=== PATIENT | female | born 1970 | race Caucasian/White ===

== ENCOUNTER 2017-06-18 12:18 | Emergency (ER) | payer MEDICARE, OTHER ==
[2017-06-18 12:30] VITALS: RESP 20
--- NOTE | 2017-06-18 12:56 | ED ---
General Adult HPI - General Chief complaint: Upper Respiratory Infection Stated complaint: Cough Source: patient, RN notes reviewed Mode of arrival: ambulatory Limitations: no limitations - History of Present Illness Initial comments: This is a 47-year-old female who presents to emergency department today with chief complaint of cough. Patient is here from [place], where she has been a resident there since June 01 for cocaine overdose. Prior to admission there, she was given a Z-Tyler for cough and it cleared up. Patient reports that many residents at [place] have been sick and she developed a cough again at the beginning of the week. She reports that she has been taking azithromycin over this past week again. Her last dose was today. She complains of a dry cough that is nonproductive. She complains of sweating and occasional shortness of breath. She has been receiving breathing treatments at [place], the last being this morning. Patient also complains of headache, sore throat, and issues with urinary retention when she coughs. She reports that her urine appears orange. Denies fever, chills, chest pain,abdominal pain , nausea or vomiting, constipation or diarrhea, dysuria, numbness or tingling, or vision changes. - Related Data Home Medications Medication Instructions Recorded Confirmed Divalproex [Depakote] 500 mg PO TID 06/18/17 06/18/17 buPROPion HCL [Wellbutrin SR] 150 mg PO BID 06/18/17 06/18/17 busPIRone HCl [Buspar] 10 mg PO BID 06/18/17 06/18/17 Allergies Allergy/AdvReac Type Severity Reaction Status Date / Time No Known Allergies Allergy Verified 06/18/17 12:29 Review of Systems ROS Statement: Those systems with pertinent positive or pertinent negative responses have been documented in the HPI. ROS Other: All systems not noted in ROS Statement are negative. Past Medical History Past Medical History: Pneumonia History of Any Multi-Drug Resistant Organisms: None Reported Additional Past Surgical History / Comment(s): neck 6-5 surgery,lt carpal tunnel Past Psychological History: Depression Smoking Status: Former smoker Past Alcohol Use History: None Reported Past Drug Use History: Cocaine General Exam - General Exam Comments Initial Comments: General: Awake and alert, well-developed; in no acute distress. Voice is hoarse. HEENT: Head atraumatic, normocephalic. Pupils are equal, round and reactive to light. Extraocular movements intact. Oropharynx moist without erythema or exudate. Neck: Supple. Normal ROM. Trachea midline. No adenopathy. Cardiovascular: Regular rate and rhythm. No murmurs, rubs or gallops. Chest symmetrical. Respiratory: Normal respiratory effort with no use of accessory muscles. There are expiratory wheezes in all lung coulter. Diminished breath sounds at the bases of both lungs. Abdomen: Soft, non-tender, non-distended. No rigidity, rebound or guarding. Normal bowel sounds in all 4 quadrants. Skin: [place], warm and dry without rashes or lesions. Neurological: Alert and oriented x3. CN II-XII grossly intact. Speech is fluent and answers are appropriate. No focal neuro deficits. Psychiatric: Normal mood and affect. No overt signs of depression or anxiety noted. Limitations: no limitations Course Vital Signs 06/18/17 12:26 Temperature 98.9 F Pulse Rate 106 H Respiratory 20 Rate Blood Pressure 145/75 O2 Sat by Pulse 99 Oximetry Medical Decision Making - Medical Decision Making This case was discussed with attending physician, Dr. Tao. Chest x-ray revealed minimal peribronchial cuffing consistent with bronchitis. She'll be discharged home with recommendation to follow up with his primary care provider within 1-2 days. Disposition Clinical Impression: Bronchitis Disposition: HOME SELF-CARE Condition: Good Instructions: Upper Respiratory Infection (ED) Additional Instructions: Please follow up with primary care provider within 1-2 days. Return to emergency department if symptoms should worsen or any concerns arise. Referrals: Nonstaff,Physician [Primary Care Provider] - 1-2 days Time of Disposition: 13:36
[2017-06-18 13:04] LABS: Appearance,Urine Cloudy (Clear); Bacteria,Urine Occasional /hpf; Bilirubin,Urine Negative (Negative); Glucose,Urine (UA) Negative (Negative); Ketones,Urine 1+ (Negative); Leukocyte Esterase,Urine Negative (Negative); Mucus,Urine Moderate /hpf; Nitrite,Urine Negative (Negative); Particle Count 10358; Protein,Urine 1+ (Negative); RBC,Urine 3 /hpf (0-5); Specific Gravity,Urine 1.031 (1.001-1.035); Squamous Epithelial Cell,Urine 20 /hpf (0-4); UA Billing (MACRO vs. MICRO) MICRO; WBC,Urine 3 /hpf (0-5)
--- NOTE | 2017-06-18 13:28 | XR ---
EXAMINATION TYPE: XR chest 2V DATE OF EXAM: 06/18/2017 HISTORY: cough. REFERENCE: NONE. FINDINGS: There has been a previous ACDF of the lower cervical spine. The lungs are clear. Pleural spaces are clear. Heart size is normal. There may be some minimal peribr onchial cuffing. IMPRESSION: FINDINGS CONSISTENT WITH BUT NOT DIAGNOSTIC OF BRONCHITIS.
[2017-06-18 13:48] VITALS: BP 142/69; PULSE 98; TEMP 98.8
== END 2017-06-18 13:48 | disposition home or self-care (01) ==
LOC: EC 12:18
DX: J40 Bronchitis, not specified as acute or chronic (principal); R51 Headache; F32.9 Major depressive disorder, single episode, unspecified; Z87.01 Personal history of pneumonia (recurrent); Z87.891 Personal history of nicotine dependence; Z79.899 Other long term (current) drug therapy
CPT/HCPCS: 71020; 81001; 99283

== ENCOUNTER 2017-06-21 13:47 | Inpatient (IN) | payer MEDICARE, OTHER ==
[2017-06-21] MEDS ORDERED: IPRATROPIUM 0.5 MG/2.5 ML NEBU INHALATION STA (14:47)
[2017-06-21] MEDS ORDERED: ALBUTEROL NEBULIZED 2.5 MG/3 ML INHALATION STA (14:47)
[2017-06-21] MEDS ORDERED: SODIUM CHLORIDE 0.9% 1,000 ML IV STA (14:47)
[2017-06-21] MEDS ORDERED: methylPREDNISolone SOD SUCCI 125 MG/2 ML VIAL IV STA (14:47)
--- NOTE | 2017-06-21 14:50 | ED ---
General Adult HPI - General Chief complaint: Shortness of Breath Stated complaint: Diff Breathing Time Seen by Provider: 06/21/17 14:07 Source: patient, RN notes reviewed, old records reviewed Mode of arrival: ambulatory Limitations: no limitations - History of Present Illness Initial comments: 47-year-old female with history of pneumonia presents with a 3 week history of cough and dyspnea. Patient's cough has been productive. She has had worsening difficulty breathing over the past several days. She was started on azithromycin approximately one week ago, this failed to improve her symptoms. Patient denies a history of asthma or COPD, however she is a smoker. She has been treated with albuterol the past for reactive airway disease. Denies any abdominal pain. Denies nausea vomiting or diarrhea. Denies fever or chills. - Related Data Home Medications Medication Instructions Recorded Confirmed Divalproex [Depakote] 500 mg PO TID 06/18/17 06/21/17 buPROPion HCL [Wellbutrin SR] 150 mg PO BID 06/18/17 06/21/17 busPIRone HCl [Buspar] 10 mg PO BID@0600,1730 06/18/17 06/21/17 Acetaminophen [Tylenol 8 Hour] 650 mg PO Q4H PRN MDD 6 TABS 06/21/17 06/21/17 Albuterol Nebulized [Ventolin 2.5 mg INHALATION RT-Q4H PRN 06/21/17 06/21/17 Nebulized] Azithromycin [Zithromax Z-pack] See Taper PO DIRECTED 06/21/17 06/21/17 Chlorpheniramine Maleate 4 mg PO Q4H PRN 06/21/17 06/21/17 [Chlor-Trimeton] FLUoxetine HCL 40 mg PO DAILY 06/21/17 06/21/17 Ibuprofen [Ibuprofen] 800 mg PO TID PRN 06/21/17 06/21/17 Lisinopril [Zestril] 10 mg PO DAILY 06/21/17 06/21/17 Loperamide [Imodium] 4 mg PO QID PRN MDD 4 DOSES 06/21/17 06/21/17 Mirtazapine [Remeron] 15 mg PO HS PRN 06/21/17 06/21/17 Omeprazole Magnesium [Prilosec OTC] 20 mg PO DAILY 06/21/17 06/21/17 Terbinafine [LamISIL] 250 mg PO DAILY 06/21/17 06/21/17 busPIRone HCl [Buspar] 5 mg PO TID@0600,1500,2200 06/21/17 06/21/17 predniSONE [Deltasone] 20 mg PO ONCE 06/21/17 06/21/17 Allergies Allergy/AdvReac Type Severity Reaction Status Date / Time paper tape Allergy Rash/Hives Uncoded 06/21/17 14:13 Review of Systems ROS Statement: Those systems with pertinent positive or pertinent negative responses have been documented in the HPI. ROS Other: All systems not noted in ROS Statement are negative. Past Medical History Past Medical History: Pneumonia History of Any Multi-Drug Resistant Organisms: None Reported Additional Past Surgical History / Comment(s): neck 6-5 surgery,lt carpal tunnel Past Psychological History: Depression Smoking Status: Current every day smoker Past Alcohol Use History: None Reported Past Drug Use History: Cocaine General Exam Limitations: no limitations General appearance: alert, in distress Head exam: Present: atraumatic, normocephalic Eye exam: Present: normal appearance, PERRL ENT exam: Present: normal exam Neck exam: Present: normal inspection, full ROM. Absent: tenderness, meningismus Respiratory exam: Present: respiratory distress, wheezes, prolonged expiratory Cardiovascular Exam: Present: normal rhythm, tachycardia GI/Abdominal exam: Present: soft. Absent: distended, tenderness Extremities exam: Present: normal inspection, normal capillary refill. Absent: pedal edema Back exam: Present: normal inspection, full ROM Neurological exam: Present: alert, oriented X3, CN II-XII intact. Absent: motor sensory deficit Psychiatric exam: Present: normal affect, normal mood. Absent: depressed Skin exam: Present: warm, intact, diaphoretic. Absent: cyanosis Course Vital Signs 06/21/17 06/21/17 06/21/17 14:11 15:02 15:17 Temperature 98.4 F Pulse Rate 116 H 113 H 110 H Respiratory 22 Rate Blood Pressure 148/91 O2 Sat by Pulse 95 Oximetry 06/21/17 15:43 Temperature 100.4 F H Pulse Rate 115 H Respiratory 22 Rate Blood Pressure 134/68 O2 Sat by Pulse 98 Oximetry EKG Findings - EKG Comments: EKG Findings:: EKG shows sinus tachycardia, ventricular rate 108, NV interval 168, QRS duration 86, QTC 442, no ST segment elevation or depression Medical Decision Making - Medical Decision Making 47-year-old female presenting with cough and dyspnea. Patient does have significant an extremely wheeze, breathing, diffuse rhonchi. Chest x-ray shows no acute process. Laboratory studies are unremarkable, including negative d- dimer. Patient only improves minimally with steroids, albuterol, Atrovent. She will be placed in observation for continued breathing treatments. Diagnosis bronchitis, likely COPD. - Lab Data Result diagrams: 06/21/17 14:35 06/21/17 14:35 Lab Results 06/21/17 06/21/17 06/21/17 Range/Units 14:35 14:35 14:35 WBC 10.0 (3.8-10.6) k/uL RBC 4.19 (3.80-5.40) m/uL Hgb 12.1 (11.4-16.0) gm/dL Hct 37.1 (34.0-46.0) % MCV 88.4 (80.0-100.0) fL MCH 29.0 (25.0-35.0) pg MCHC 32.7 (31.0-37.0) g/dL RDW 14.9 (11.5-15.5) % Plt Count 338 (150-450) k/uL Neutrophils % 76 % Lymphocytes % 15 % Monocytes % 2 % Eosinophils % 6 % Basophils % 1 % Neutrophils # 7.6 (1.3-7.7) k/uL Lymphocytes # 1.5 (1.0-4.8) k/uL Monocytes # 0.2 (0-1.0) k/uL Eosinophils # 0.6 (0-0.7) k/uL Basophils # 0.1 (0-0.2) k/uL PT (9.0-12.0) sec INR (<1.2) APTT (22.0-30.0) sec D-Dimer (<0.60) mg/L FEU Sodium 140 (137-145) mmol/L Potassium 4.7 (3.5-5.1) mmol/L Chloride 105 (98-107) mmol/L Carbon Dioxide 20 L (22-30) mmol/L Anion Gap 15 mmol/L BUN 10 (7-17) mg/dL Creatinine 0.70 (0.52-1.04) mg/dL Est GFR (MDRD) Af Amer >60 (>60 ml/min/1.73 sqM) Est GFR (MDRD) Non-Af >60 (>60 ml/min/1.73 sqM) Glucose 151 H (74-99) mg/dL Calcium 9.2 (8.4-10.2) mg/dL Magnesium 1.6 (1.6-2.3) mg/dL Total Bilirubin 0.4 (0.2-1.3) mg/dL AST 39 H (14-36) U/L ALT 49 (9-52) U/L Alkaline Phosphatase 94 (38-126) U/L Total Creatine Kinase 722 H (30-135) U/L CK-MB (CK-2) 4.5 H* (0.0-2.4) ng/mL CK-MB (CK-2) Rel Index 0.6 Troponin I <0.012 (0.000-0.034) ng/mL NT-Pro-B Natriuret Pep pg/mL Total Protein 7.2 (6.3-8.2) g/dL Albumin 3.9 (3.5-5.0) g/dL Urine Color Urine Appearance (Clear) Urine pH (5.0-8.0) Ur Specific [place] (1.001-1.035) Urine Protein (Negative) Urine Glucose (UA) (Negative) Urine Ketones (Negative) Urine Blood (Negative) Urine Nitrite (Negative) Urine Bilirubin (Negative) Urine Urobilinogen (<2.0) mg/dL Ur Leukocyte Esterase (Negative) Urine RBC (0-5) /hpf Urine WBC (0-5) /hpf Ur Squamous Epith Cells (0-4) /hpf Urine Mucus (None) /hpf Urine HCG, Qual (Not Detectd) 06/21/17 06/21/17 06/21/17 Range/Units 14:35 14:35 15:45 WBC (3.8-10.6) k/uL RBC (3.80-5.40) m/uL Hgb (11.4-16.0) gm/dL Hct (34.0-46.0) % MCV (80.0-100.0) fL MCH (25.0-35.0) pg MCHC (31.0-37.0) g/dL RDW (11.5-15.5) % Plt Count (150-450) k/uL Neutrophils % % Lymphocytes % % Monocytes % % Eosinophils % % Basophils % % Neutrophils # (1.3-7.7) k/uL Lymphocytes # (1.0-4.8) k/uL Monocytes # (0-1.0) k/uL Eosinophils # (0-0.7) k/uL Basophils # (0-0.2) k/uL PT 10.3 (9.0-12.0) sec INR 1.0 (<1.2) APTT 24.7 (22.0-30.0) sec D-Dimer 0.55 (<0.60) mg/L FEU Sodium (137-145) mmol/L Potassium (3.5-5.1) mmol/L Chloride (98-107) mmol/L Carbon Dioxide (22-30) mmol/L Anion Gap mmol/L BUN (7-17) mg/dL Creatinine (0.52-1.04) mg/dL Est GFR (MDRD) Af Amer (>60 ml/min/1.73 sqM) Est GFR (MDRD) Non-Af (>60 ml/min/1.73 sqM) Glucose (74-99) mg/dL Calcium (8.4-10.2) mg/dL Magnesium (1.6-2.3) mg/dL Total Bilirubin (0.2-1.3) mg/dL AST (14-36) U/L ALT (9-52) U/L Alkaline Phosphatase (38-126) U/L Total Creatine Kinase (30-135) U/L CK-MB (CK-2) (0.0-2.4) ng/mL CK-MB (CK-2) Rel Index Troponin I (0.000-0.034) ng/mL NT-Pro-B Natriuret Pep 64 pg/mL Total Protein (6.3-8.2) g/dL Albumin (3.5-5.0) g/dL Urine Color Urine Appearance (Clear) Urine pH (5.0-8.0) Ur Specific [place] (1.001-1.035) Urine Protein (Negative) Urine Glucose (UA) (Negative) Urine Ketones (Negative) Urine Blood (Negative) Urine Nitrite (Negative) Urine Bilirubin (Negative) Urine Urobilinogen (<2.0) mg/dL Ur Leukocyte Esterase (Negative) Urine RBC (0-5) /hpf Urine WBC (0-5) /hpf Ur Squamous Epith Cells (0-4) /hpf Urine Mucus (None) /hpf Urine HCG, Qual Not Detected (Not Detectd) 06/21/17 Range/Units 15:45 WBC (3.8-10.6) k/uL RBC (3.80-5.40) m/uL Hgb (11.4-16.0) gm/dL Hct (34.0-46.0) % MCV (80.0-100.0) fL MCH (25.0-35.0) pg MCHC (31.0-37.0) g/dL RDW (11.5-15.5) % Plt Count (150-450) k/uL Neutrophils % % Lymphocytes % % Monocytes % % Eosinophils % % Basophils % % Neutrophils # (1.3-7.7) k/uL Lymphocytes # (1.0-4.8) k/uL Monocytes # (0-1.0) k/uL Eosinophils # (0-0.7) k/uL Basophils # (0-0.2) k/uL PT (9.0-12.0) sec INR (<1.2) APTT (22.0-30.0) sec D-Dimer (<0.60) mg/L FEU Sodium (137-145) mmol/L Potassium (3.5-5.1) mmol/L Chloride (98-107) mmol/L Carbon Dioxide (22-30) mmol/L Anion Gap mmol/L BUN (7-17) mg/dL Creatinine (0.52-1.04) mg/dL Est GFR (MDRD) Af Amer (>60 ml/min/1.73 sqM) Est GFR (MDRD) Non-Af (>60 ml/min/1.73 sqM) Glucose (74-99) mg/dL Calcium (8.4-10.2) mg/dL Magnesium (1.6-2.3) mg/dL Total Bilirubin (0.2-1.3) mg/dL AST (14-36) U/L ALT (9-52) U/L Alkaline Phosphatase (38-126) U/L Total Creatine Kinase (30-135) U/L CK-MB (CK-2) (0.0-2.4) ng/mL CK-MB (CK-2) Rel Index Troponin I (0.000-0.034) ng/mL NT-Pro-B Natriuret Pep pg/mL Total Protein (6.3-8.2) g/dL Albumin (3.5-5.0) g/dL Urine Color Yellow Urine Appearance Clear (Clear) Urine pH 7.0 (5.0-8.0) Ur Specific [place] 1.018 (1.001-1.035) Urine Protein Negative (Negative) Urine Glucose (UA) Negative (Negative) Urine Ketones 1+ H (Negative) Urine Blood Trace H (Negative) Urine Nitrite Negative (Negative) Urine Bilirubin Negative (Negative) Urine Urobilinogen <2.0 (<2.0) mg/dL Ur Leukocyte Esterase Negative (Negative) Urine RBC 3 (0-5) /hpf Urine WBC <1 (0-5) /hpf Ur Squamous Epith Cells 1 (0-4) /hpf Urine Mucus Rare H (None) /hpf Urine HCG, Qual (Not Detectd) Disposition Clinical Impression: Chronic bronchitis Disposition: ADMITTED IP TO THIS [facility] Condition: Stable Referrals: Nonstaff,Physician [Primary Care Provider] - 1-2 days Decision to Admit Reason: Admit from EC Decision Date: 06/21/17 Decision Time: 16:40
[2017-06-21 15:05] LABS: Basophils # (A) 0.1 k/uL (0-0.2); Basophils % (A) 1 %; CH 28.3; CHCM 32.2; Eosinophils # (A) 0.6 k/uL (0-0.7); Eosinophils % (A) 6 %; HCT 37.1 % (34.0-46.0); HDW 2.91; HGB 12.1 gm/dL (11.4-16.0); Luc # (Auto) 0.11; Luc % (Auto) 1; Lymphocytes # (A) 1.5 k/uL (1.0-4.8); Lymphocytes % (A) 15 %; MCHC 32.7 g/dL (31.0-37.0); MCV 88.4 fL (80.0-100.0); Mean Platelet Volume 6.6; Monocytes # (A) 0.2 k/uL (0-1.0); Monocytes % (A) 2 %; Neutrophils # (A) 7.6 k/uL (1.3-7.7); Neutrophils % (A) 76 %; RBC 4.19 m/uL (3.80-5.40); RDW 14.9 % (11.5-15.5); WBC (Perox) 10.46
[2017-06-21 15:09] LABS: ALT 49 U/L (9-52); AST 39 U/L (14-36); Alkaline Phosphatase 94 U/L (38-126); Anion Gap 15 mmol/L; Blood Urea Nitrogen 10 mg/dL (7-17); Calcium 9.2 mg/dL (8.4-10.2); Carbon Dioxide 20 mmol/L (22-30); Chloride 105 mmol/L (98-107); Glucose 151 mg/dL (74-99); Magnesium 1.6 mg/dL (1.6-2.3); Non-African American GFR(MDRD) >60 (>60 ml/min/1.73 sqM); Potassium 4.7 mmol/L (3.5-5.1); Sodium 140 mmol/L (137-145); Total Bilirubin 0.4 mg/dL (0.2-1.3); Total Protein 7.2 g/dL (6.3-8.2)
[2017-06-21 15:12] LABS: Partial Thromboplastin Time 24.7 sec (22.0-30.0); Prothrombin Time 10.3 sec (9.0-12.0)
[2017-06-21 15:23] LABS: Creatine Kinase 722 U/L (30-135)
[2017-06-21 15:36] LABS: Troponin I <0.012 ng/mL (0.000-0.034)
[2017-06-21 15:44] LABS: Creatine Kinase MB 4.5 ng/mL (0.0-2.4)
--- NOTE | 2017-06-21 15:55 | XR ---
EXAMINATION TYPE: XR chest 2V DATE OF EXAM: 06/21/2017 COMPARISON: Chest x-ray June 18, 2017 HISTORY: Difficulty breathing and wheezing. TECHNIQUE: Frontal and lateral views of the chest are obtained. FINDINGS: There is no focal air space opacity, pleural effusion, or pneumothorax seen. The cardiac silhouette size is within normal limits. Anterior fusion plate lower cervical spine is again seen. Ch olecystectomy clips are redemonstrated. IMPRESSION: No suspicious new acute pulmonary process.
[2017-06-21 15:57] LABS: Appearance,Urine Clear (Clear); Bilirubin,Urine Negative (Negative); Glucose,Urine (UA) Negative (Negative); Ketones,Urine 1+ (Negative); Leukocyte Esterase,Urine Negative (Negative); Mucus,Urine Rare /hpf; Nitrite,Urine Negative (Negative); Particle Count 815; Protein,Urine Negative (Negative); RBC,Urine 3 /hpf (0-5); Specific Gravity,Urine 1.018 (1.001-1.035); Squamous Epithelial Cell,Urine 1 /hpf (0-4); UA Billing (MACRO vs. MICRO) MICRO; Urobilinogen,Urine <2.0 mg/dL (<2.0); WBC,Urine <1 /hpf (0-5)
[2017-06-21] MEDS ORDERED: NALOXONE 0.4 MG/ML 1 ML VIAL IV PRN (16:58)
[2017-06-21] MEDS ORDERED: AZITHROMYCIN 500 MG TAB PO STA (17:03)
[2017-06-21] MEDS ORDERED: NON-FORMULARY DRUG (Acetaminophen [Tylenol 8 Hour] 650 MG) PO PRN (17:05)
[2017-06-21] MEDS ORDERED: MIRTAZAPINE 15 MG TAB PO PRN (17:05)
--- NOTE | 2017-06-21 17:24 | P.HPIM ---
History of Present Illness H&P Date: 06/21/17 47-year-old female with history of pneumonia presents with a 3 week history of cough and dyspnea. Patient's cough has been productive. She has had worsening difficulty breathing over the past four days with wheezing that is worse with exertion, she mentions a history of tobacco use further over 25 years. She was started on azithromycin approximately one week ago, this failed to improve her symptoms. Patient denies a history of asthma or COPD, however she is a smoker. She has been treated with albuterol the past for reactive airway disease. Denies any abdominal pain. Denies nausea vomiting or diarrhea. Denies fever or chills. Review of Systems All other 14 point review of systems are negative except per HPI Past Medical History Past Medical History: Pneumonia History of Any Multi-Drug Resistant Organisms: None Reported Additional Past Surgical History / Comment(s): neck 6-5 surgery,lt carpal tunnel Past Psychological History: Depression Smoking Status: Current every day smoker Past Alcohol Use History: None Reported Past Drug Use History: Cocaine Medications and Allergies Home Medications Medication Instructions Recorded Confirmed Type Divalproex [Depakote] 500 mg PO TID 06/18/17 06/21/17 History buPROPion HCL [Wellbutrin SR] 150 mg PO BID 06/18/17 06/21/17 History busPIRone HCl [Buspar] 10 mg PO BID@0600,1730 06/18/17 06/21/17 History Acetaminophen [Tylenol 8 Hour] 650 mg PO Q4H PRN MDD 6 TABS 06/21/17 06/21/17 History Albuterol Nebulized [Ventolin 2.5 mg INHALATION RT-Q4H PRN 06/21/17 06/21/17 History Nebulized] Azithromycin [Zithromax Z-pack] See Taper PO DIRECTED 06/21/17 06/21/17 History Chlorpheniramine Maleate 4 mg PO Q4H PRN 06/21/17 06/21/17 History [Chlor-Trimeton] FLUoxetine HCL 40 mg PO DAILY 06/21/17 06/21/17 History Ibuprofen [Ibuprofen] 800 mg PO TID PRN 06/21/17 06/21/17 History Lisinopril [Zestril] 10 mg PO DAILY 06/21/17 06/21/17 History Loperamide [Imodium] 4 mg PO QID PRN MDD 4 DOSES 06/21/17 06/21/17 History Mirtazapine [Remeron] 15 mg PO HS PRN 06/21/17 06/21/17 History Omeprazole Magnesium [Prilosec OTC] 20 mg PO DAILY 06/21/17 06/21/17 History Terbinafine [LamISIL] 250 mg PO DAILY 06/21/17 06/21/17 History busPIRone HCl [Buspar] 5 mg PO TID@0600,1500,2200 06/21/17 06/21/17 History predniSONE [Deltasone] 20 mg PO ONCE 06/21/17 06/21/17 History Allergies Allergy/AdvReac Type Severity Reaction Status Date / Time paper tape Allergy Rash/Hives Uncoded 06/21/17 14:13 Physical Exam Vitals: Vital Signs Temp Pulse Resp BP Pulse Ox 06/21/17 15:43 100.4 F H 115 H 22 134/68 98 06/21/17:17 110 H 06/21/17 15:02 113 H 06/21/17 14:11 98.4 F 116 H 22 148/91 95 Intake and Output 06/21/17 06/21/17 06/21/17 06:59 14:59 22:59 Other: Weight 114.305 kg Patient Weight 06/22/17 06:59 Weight 114.305 kg Constitutional: Moderate respiratory distress, accessory muscle use Eyes: Anicteric sclerae, moist conjunctiva, no lid-lag, PERRLA ENMT: NC/AT,Oropharynx clear, no erythema, exudates Neck:Supple, FROM, no masses, or JVD, No carotid bruits; No thyromegaly Lungs: Poor aeration tight with expiratory wheezes, Clear to percussion, increased work of breathing with accessory muscle use Cardiovascular: Tachycardic regular rhythm No murmurs, gallops, or rubs no peripheral edema Abdominal: Soft Nontender, nom distended, no guarding, no rebound or rigidity, Normoactive bowel sounds No hepatomegaly, No splenomegaly, No palpable mass No abdominal wall hernia noted Skin: Normal temperature, tone, texture, turgor, No induration No subcutaneous nodules, No rash, lesions, No ulcers Extremities:No digital cyanosis No clubbing, Pedal pulses intact and symmetrical Radial pulses intact and symmetrical Normal gait and station, No calf tenderness Psychiatric: Alert and oriented to person, place and time, Appropriate affect Intact judgement Neuro: Muscles Strength 5/5 in all 4 extremities, Sensation to light touch grossly present throughout, Cranial nerves II-XII grossly intact. No focal sensory deficits Results CBC & Chem 7: 06/21/17 14:35 06/21/17 14:35 Labs: Abnormal Lab Results - Last 24 Hours (Table) 06/21/17 06/21/17 06/21/17 Range/Units 14:35 14:35 15:45 Carbon Dioxide 20 L (22-30) mmol/L Glucose 151 H (74-99) mg/dL AST 39 H (14-36) U/L Total Creatine Kinase 722 H (30-135) U/L CK-MB (CK-2) 4.5 H* (0.0-2.4) ng/mL Urine Ketones 1+ H (Negative) Urine Blood Trace H (Negative) Urine Mucus Rare H (None) /hpf Assessment and Plan (1) COPD exacerbation Status: Acute (2) Acute bronchitis Status: Acute (3) Elevated creatine kinase Status: Acute (4) Sepsis Status: Acute (5) Metabolic acidosis Status: Acute Plan: The patient is a 47-year-old female is admitted to the medical floor anticipated greater than TWO midnight stay with acute COPD exacerbation triggered by sepsis etiology unknown possibly viral bronchitis after presenting tachycardic and febrile, she started on empiric IV antibiotics with Rocephin and azithromycin, chest x-ray is clear but she is covered for community- acquired pneumonia. She is continued on supplemental oxygen with scheduled and when necessary DuoNeb breathing treatments with systemic steroids IV Solu- Medrol and supportive therapy for cough fever and nausea. She is continued on IV fluids will recheck check her labs as a patient does have a metabolic acidosis and elevated total CK. She is continued on GI and DVT prophylaxis with Protonix and SCDs and Lovenox respectively. Influenza urine Legionella and strep and blood cultures have been ordered. We'll continue to follow her clinical course
[2017-06-21] MEDS ORDERED: ONDANSETRON 4 MG/2 ML VIAL IVP PRN (17:27)
[2017-06-21] MEDS ORDERED: IPRATROPIUM-ALBUTEROL 3 ML NEB INHALATION PRN (17:39)
[2017-06-21 18:10] LABS: ABG PCO2 36 mmHg (35-45); ABG PH 7.44 (7.35-7.45); ABG PO2 99 mmHg (83-108)
[2017-06-21] MEDS: INSULIN LISPRO (humaLOG) 300 UNIT/3 ML VIAL SQ SCH ×2 (18:10→21:53)
[2017-06-21 18:11] LABS: ABG Base Excess -0.1 mmol/L; ABG HCO3 24 mmol/L (21-25); ABG TCO2 25 mmol/L (19-24)
[2017-06-21] MEDS: SODIUM CHLORIDE 0.45% 1,000 ML IV SCH (18:19)
[2017-06-21] MEDS: ENOXAPARIN 40 MG/0.4 ML SYRINGE SQ SCH (19:15)
[2017-06-21] MEDS: busPIRone HCl 10 MG TAB PO SCH (19:22)
[2017-06-21] MEDS: ACETAMINOPHEN TAB 325 MG TAB PO PRN (19:23)
[2017-06-21] MEDS: IPRATROPIUM-ALBUTEROL 3 ML NEB INHALATION SCH (19:36)
[2017-06-21] MEDS: PROMETHAZ-COD 6.25-10 MG/5 ML 5 ML CUP PO PRN (20:23)
[2017-06-21 20:42] LABS: Glucose,Whole Blood 228 mg/dL (75-99)
[2017-06-21 21:45] LABS: Creatine Kinase MB 4.4 ng/mL (0.0-2.4)
[2017-06-21] MEDS: busPIRone HCl 5 MG TAB PO SCH (21:53)
[2017-06-21] MEDS: buPROPion SR 150 MG TABLET.ER PO SCH (21:53)
[2017-06-21] MEDS: DIVALPROEX 500 MG TABLET.DR PO SCH (21:54)
[2017-06-21] MEDS: methylPREDNISolone SOD SUCCI 125 MG/2 ML VIAL IV SCH (23:18)
[2017-06-22] MEDS: IPRATROPIUM-ALBUTEROL 3 ML NEB INHALATION SCH ×5 (00:30→20:31)
[2017-06-22 02:40] LABS: Basophils % (A) 0 %; CH 29.5; CHCM 33.1; Eosinophils # (A) 0.2 k/uL (0-0.7); Eosinophils % (A) 2 %; HCT 35.2 % (34.0-46.0); HDW 2.88; HGB 11.3 gm/dL (11.4-16.0); Luc # (Auto) 0.04; Luc % (Auto) 0; Lymphocytes # (A) 1.1 k/uL (1.0-4.8); Lymphocytes % (A) 8 %; MCH 28.8 pg (25.0-35.0); MCHC 32.1 g/dL (31.0-37.0); MCV 89.6 fL (80.0-100.0); Mean Platelet Volume 7.2; Monocytes # (A) 0.2 k/uL (0-1.0); Monocytes % (A) 1 %; Neutrophils # (A) 12.8 k/uL (1.3-7.7); Neutrophils % (A) 89 %; RBC 3.92 m/uL (3.80-5.40); WBC 14.4 k/uL (3.8-10.6); WBC (Perox) 15.82
[2017-06-22 03:00] LABS: ALT 51 U/L (9-52); AST 32 U/L (14-36); Alkaline Phosphatase 85 U/L (38-126); Anion Gap 12 mmol/L; Blood Urea Nitrogen 15 mg/dL (7-17); Calcium 9.3 mg/dL (8.4-10.2); Carbon Dioxide 23 mmol/L (22-30); Chloride 103 mmol/L (98-107); Glucose 191 mg/dL (74-99); Non-African American GFR(MDRD) >60 (>60 ml/min/1.73 sqM); Potassium 4.7 mmol/L (3.5-5.1); Sodium 138 mmol/L (137-145); Total Bilirubin 0.2 mg/dL (0.2-1.3); Total Protein 6.9 g/dL (6.3-8.2)
[2017-06-22 03:16] LABS: Creatine Kinase MB 4.7 ng/mL (0.0-2.4)
[2017-06-22] MEDS: SODIUM CHLORIDE 0.45% 1,000 ML IV SCH ×3 (04:56→23:43)
[2017-06-22] MEDS: busPIRone HCl 5 MG TAB PO SCH ×3 (05:28→21:08)
[2017-06-22] MEDS: busPIRone HCl 10 MG TAB PO SCH ×2 (05:28→17:41)
[2017-06-22] MEDS: methylPREDNISolone SOD SUCCI 125 MG/2 ML VIAL IV SCH ×4 (05:28→23:42)
[2017-06-22 07:35] LABS: Glucose,Whole Blood 168 mg/dL (75-99)
[2017-06-22] MEDS: FLUoxetine HCL 20 MG CAP PO SCH (07:44)
[2017-06-22] MEDS: NICOTINE 21MG/24HR PATCH TRANSDERM SCH ×2 (07:44→08:04)
[2017-06-22] MEDS: ENOXAPARIN 40 MG/0.4 ML SYRINGE SQ SCH ×2 (07:44→17:53)
[2017-06-22] MEDS: LISINOPRIL 10 MG TAB PO SCH (07:44)
[2017-06-22] MEDS: DIVALPROEX 500 MG TABLET.DR PO SCH ×3 (07:44→21:08)
[2017-06-22] MEDS: buPROPion SR 150 MG TABLET.ER PO SCH ×2 (07:45→21:08)
[2017-06-22] MEDS: INSULIN LISPRO (humaLOG) 300 UNIT/3 ML VIAL SQ SCH ×4 (07:46→21:18)
[2017-06-22] MEDS: ACETAMINOPHEN TAB 325 MG TAB PO PRN ×3 (07:47→21:08)
--- NOTE | 2017-06-22 08:49 | XR ---
EXAMINATION TYPE: XR chest 2V DATE OF EXAM: 06/22/2017 COMPARISON: 06/21/2017 HISTORY: 47-year-old female with cough and fever TECHNIQUE: Frontal and lateral views FINDINGS: Heart is normal size. Aorta and pulmonary vasculature within normal limits. Central peribronchial cuf fing is noted. No consolidation or pleural effusion. ACDF hardware. IMPRESSION: Peribronchial cuffing suggests bronchitis or chronic asthma. No focal infiltrate seen.
[2017-06-22] MEDS ORDERED: AZITHROMYCIN 250 MG TAB PO SCH (09:00)
[2017-06-22] MEDS ORDERED: PANTOPRAZOLE 40 MG/10 ML VIAL IV SCH (09:00)
--- NOTE | 2017-06-22 11:39 | P.PN ---
Subjective Progress Note Date: 06/22/17 Principal diagnosis: Patient is a 47-year-old female with a history of tobaccoism the presents with COPD exacerbation with no prior history of COPD or asthma. She was initially in respiratory distress using accessory muscles was started on therapy with systemic steroids scheduled breathing bronchodilator treatments and empiric IV antibiotics with Rocephin and azithromycin she did have initially a low-grade temperature workup as far as been negative influenza is been negative. Patient initially felt much better this morning was apparently refusing breathing treatments overnight apparently because she did not want to be woken up from sleep. On ambulating to the restroom this morning she began having difficulty breathing and coughing and wheezing, afebrile overnight. Patient was concerned and anxious today about returning to [place] she was previously there prior to presentation for treatment of suicidal ideation with attempted prior cocaine overdose Objective - Vital Signs Vital signs: Vital Signs Temp 97.8 F 06/22/17 07:00 Pulse 110 H 06/22/17 07:45 Resp 20 06/22/17 07:25 BP 144/85 06/22/17 07:00 Pulse Ox 98 06/22/17 07:00 Intake & Output 06/21/17 06/22/17 06/22/17 18:59 06:59 18:59 Intake Total 1979 Balance 1979 Weight 114.305 kg Intake: Intake, IV Titration 800 Amount Sodium Chloride 0.45% 1, 800 000 ml @ 100 mls/hr IV . Q10H [facility] Rx#:[id number] Oral 1180 Other: # Voids 2 - Exam Constitutional: No acute distress, conversant, pleasant Eyes: Anicteric sclerae, moist conjunctiva, no lid-lag, PERRLA ENMT: NC/AT,Oropharynx clear, no erythema, exudates Neck:Supple, FROM, no masses, or JVD, No carotid bruits; No thyromegaly Lungs: Diminished in the bases mid and lower field expiratory wheezes no accessory muscle use Cardiovascular: Heart regular in rate and rhythm, No murmurs, gallops, or rubs no peripheral edema Abdominal: Soft Nontender, nom distended, no guarding, no rebound or rigidity, Normoactive bowel sounds No hepatomegaly, No splenomegaly, No palpable mass No abdominal wall hernia noted Skin: Normal temperature, tone, texture, turgor, No induration No subcutaneous nodules, No rash, lesions, No ulcers Extremities:No digital cyanosis No clubbing, Pedal pulses intact and symmetrical Radial pulses intact and symmetrical Normal gait and station, No calf tenderness Psychiatric: Alert and oriented to person, place and time, Appropriate affect Intact judgement Neuro: Muscles Strength 5/5 in all 4 extremities, Sensation to light touch grossly present throughout, Cranial nerves II-XII grossly intact. No focal sensory deficits - Labs CBC & Chem 7: 06/22/17 02:29 06/22/17 02:29 Labs: Abnormal Lab Results - Last 24 Hours (Table) 06/21/17 06/21/17 06/21/17 Range/Units 14:35 14:35 15:45 WBC (3.8-10.6) k/uL Hgb (11.4-16.0) gm/dL RDW (11.5-15.5) % Neutrophils # (1.3-7.7) k/uL ABG Total CO2 (19-24) mmol/L ABG O2 Saturation (94-97) % Carbon Dioxide 20 L (22-30) mmol/L Glucose 151 H (74-99) mg/dL POC Glucose (mg/dL) (75-99) mg/dL AST 39 H (14-36) U/L Total Creatine Kinase 722 H (30-135) U/L CK-MB (CK-2) 4.5 H* (0.0-2.4) ng/mL Urine Ketones 1+ H (Negative) Urine Blood Trace H (Negative) Urine Mucus Rare H (None) /hpf 06/21/17 06/21/17 06/21/17 Range/Units 18:01 20:40 21:01 WBC (3.8-10.6) k/uL Hgb (11.4-16.0) gm/dL RDW (11.5-15.5) % Neutrophils # (1.3-7.7) k/uL ABG Total CO2 25 H (19-24) mmol/L ABG O2 Saturation 98.0 H (94-97) % Carbon Dioxide (22-30) mmol/L Glucose (74-99) mg/dL POC Glucose (mg/dL) 228 H (75-99) mg/dL AST (14-36) U/L Total Creatine Kinase 633 H (30-135) U/L CK-MB (CK-2) 4.4 H* (0.0-2.4) ng/mL Urine Ketones (Negative) Urine Blood (Negative) Urine Mucus (None) /hpf 06/22/17 06/22/17 06/22/17 Range/Units 02:29 02:29 02:29 WBC 14.4 H (3.8-10.6) k/uL Hgb 11.3 L (11.4-16.0) gm/dL RDW 16.0 H (11.5-15.5) % Neutrophils # 12.8 H (1.3-7.7) k/uL ABG Total CO2 (19-24) mmol/L ABG O2 Saturation (94-97) % Carbon Dioxide (22-30) mmol/L Glucose 191 H (74-99) mg/dL POC Glucose (mg/dL) (75-99) mg/dL AST (14-36) U/L Total Creatine Kinase 508 H (30-135) U/L CK-MB (CK-2) 4.7 H* (0.0-2.4) ng/mL Urine Ketones (Negative) Urine Blood (Negative) Urine Mucus (None) /hpf 06/22/17 Range/Units 07:15 WBC (3.8-10.6) k/uL Hgb (11.4-16.0) gm/dL RDW (11.5-15.5) % Neutrophils # (1.3-7.7) k/uL ABG Total CO2 (19-24) mmol/L ABG O2 Saturation (94-97) % Carbon Dioxide (22-30) mmol/L Glucose (74-99) mg/dL POC Glucose (mg/dL) 168 H (75-99) mg/dL AST (14-36) U/L Total Creatine Kinase (30-135) U/L CK-MB (CK-2) (0.0-2.4) ng/mL Urine Ketones (Negative) Urine Blood (Negative) Urine Mucus (None) /hpf Assessment and Plan (1) COPD exacerbation Narrative/Plan: Patient so presymptomatic having shortness of breath and wheezes * Continue current regimen with systemic steroids Solu-Medrol 60 mg IV 4 times a day, scheduled breathing treatments * We'll change from azithromycin and Rocephin to Levaquin by mouth * Therapy chest x-ray shows peribronchial cuffing suggestive of bronchitis or chronic asthma no focal infiltrates seen Status: Acute (2) Acute bronchitis Narrative/Plan: Continue symptomatic management with Mucinex Phenergan with codeine Status: Acute (3) Elevated creatine kinase Status: Acute (4) Sepsis Narrative/Plan: Source unknown Continue antibiotic therapy leukocytosis slightly up at 14.5 Status: Acute (5) Metabolic acidosis Status: Resolved
[2017-06-22 11:43] LABS: Glucose,Whole Blood 206 mg/dL (75-99)
[2017-06-22] MEDS: PROMETHAZ-COD 6.25-10 MG/5 ML 5 ML CUP PO PRN (13:04)
[2017-06-22] MEDS: LEVOFLOXACIN 500 MG TAB PO SCH (13:11)
[2017-06-22 17:12] LABS: Glucose,Whole Blood 246 mg/dL (75-99)
[2017-06-22 20:17] LABS: Glucose,Whole Blood 227 mg/dL (75-99)
[2017-06-23] MEDS: busPIRone HCl 5 MG TAB PO SCH (06:11)
[2017-06-23] MEDS: methylPREDNISolone SOD SUCCI 125 MG/2 ML VIAL IV SCH ×2 (06:11→13:33)
[2017-06-23] MEDS: busPIRone HCl 10 MG TAB PO SCH (06:11)
[2017-06-23] MEDS: ACETAMINOPHEN TAB 325 MG TAB PO PRN ×2 (06:15→12:26)
[2017-06-23] MEDS ORDERED: PANTOPRAZOLE 40 MG TABLET PO SCH (07:30)
[2017-06-23 07:32] LABS: Glucose,Whole Blood 181 mg/dL (75-99)
[2017-06-23 07:51] VITALS: BP 130/73; RESP 16; TEMP 97.6
[2017-06-23] MEDS: IPRATROPIUM-ALBUTEROL 3 ML NEB INHALATION SCH ×2 (08:11→13:37)
[2017-06-23 08:14] VITALS: PULSE 96
[2017-06-23] MEDS: FLUoxetine HCL 20 MG CAP PO SCH (08:21)
[2017-06-23] MEDS: LISINOPRIL 10 MG TAB PO SCH (08:21)
[2017-06-23] MEDS: DIVALPROEX 500 MG TABLET.DR PO SCH (08:21)
[2017-06-23] MEDS: buPROPion SR 150 MG TABLET.ER PO SCH (08:21)
[2017-06-23] MEDS: INSULIN LISPRO (humaLOG) 300 UNIT/3 ML VIAL SQ SCH ×2 (08:22→13:33)
[2017-06-23] MEDS: NICOTINE 21MG/24HR PATCH TRANSDERM SCH (08:22)
[2017-06-23] MEDS: ENOXAPARIN 40 MG/0.4 ML SYRINGE SQ SCH (08:22)
--- NOTE | 2017-06-23 10:56 | P.DS ---
Providers Date of admission: 06/21/17 16:58 Expected date of discharge: 06/23/17 Attending physician: Emanuel Josue MD Consults: 06/22/17 01:28 Consult Physician Routine Consulting Provider: Ra Marie Consult Reason/Comments: previous suicide attempt/ depression Do you want consulting provider notified?: Already Contacted Primary care physician: Physician Nonstaff - Discharge Diagnosis(es) (1) COPD exacerbation Current Visit: Yes Status: Acute (2) Acute bronchitis Current Visit: Yes Status: Acute (3) Elevated creatine kinase Current Visit: Yes Status: Acute (4) Sepsis Current Visit: Yes Status: Acute (5) Metabolic acidosis Current Visit: Yes Status: Resolved (6) Rhinovirus Current Visit: Yes Status: Acute Hospital Course: The patient is a 47-year-old female with a past with a history of smoking with no previous history of COPD or asthma that presented to the ER with difficulty breathing and after having completed the course of azithromycin in the outpatient setting, on presentation the patient was wheezy and tight. And was admitted for an acute COPD exacerbation she was started on empiric IV antibiotics with IV Rocephin and azithromycin after she was noted to have a fever of 100.4 in the ER. Further workup with a chest x-ray showed no acute infectious process, her viral panel did come back positive for rhinovirus which was a likely trigger for her COPD exacerbation with a viral bronchitis. blood and urine cultures are negative, she did have some mild dehydration and elevated creatinine kinase on admit however with IV hydration this resolved. Her chest x-ray did show peribronchial cuffing associated with asthma or chronic bronchitis. With scheduled and when necessary broncho-dilator breathing treatments systemic steroids antibodies patient gradually improved and was subsequently discharged back to [place] with prescriptions for prednisone Levaquin albuterol nebulizer and Advair. She was given a flu shot and told to follow-up with her PCP in 5-7 days. this discharge process took approximately 30 minutes. Patient Condition at Discharge: Stable Plan - Discharge Summary New Discharge Prescriptions: New Fluticasone/Salmeterol [Advair 250-50 Diskus] 1 each IH BID #1 blst.w.dev Levofloxacin [Levaquin] 500 mg PO Q24H #5 tab Albuterol Nebulized (Conc) [Ventolin Nebulized (Conc)] 2.5 mg INHALATION Q3- 4H PRN #1 neb PRN Reason: SOA predniSONE 40 mg PO DAILY #5 tab Continue busPIRone HCl [Buspar] 10 mg PO BID@0600,1730 buPROPion HCL [Wellbutrin SR] 150 mg PO BID Divalproex [Depakote] 500 mg PO TID Omeprazole Magnesium [Prilosec OTC] 20 mg PO DAILY busPIRone HCl [Buspar] 5 mg PO TID@0600,1500,2200 FLUoxetine HCL 40 mg PO DAILY Terbinafine [LamISIL] 250 mg PO DAILY Loperamide [Imodium] 4 mg PO QID PRN MDD 4 DOSES PRN Reason: Loose Stool Lisinopril [Zestril] 10 mg PO DAILY Chlorpheniramine Maleate [Chlor-Trimeton] 4 mg PO Q4H PRN PRN Reason: Allergy Symptoms Acetaminophen [Tylenol 8 Hour] 650 mg PO Q4H PRN MDD 6 TABS PRN Reason: Pain Mirtazapine [Remeron] 15 mg PO HS PRN PRN Reason: RESTLESS LEGS Discontinued Ibuprofen [Ibuprofen] 800 mg PO TID PRN PRN Reason: Pain Azithromycin [Zithromax Z-pack] See Taper PO DIRECTED Discharge Medication List Divalproex [Depakote] 500 mg PO TID 06/18/17 [History] buPROPion HCL [Wellbutrin SR] 150 mg PO BID 06/18/17 [History] busPIRone HCl [Buspar] 10 mg PO BID@0600,1730 06/18/17 [History] Acetaminophen [Tylenol 8 Hour] 650 mg PO Q4H PRN MDD 6 TABS 06/21/17 [History] Chlorpheniramine Maleate [Chlor-Trimeton] 4 mg PO Q4H PRN 06/21/17 [History] FLUoxetine HCL 40 mg PO DAILY 06/21/17 [History] Lisinopril [Zestril] 10 mg PO DAILY 06/21/17 [History] Loperamide [Imodium] 4 mg PO QID PRN MDD 4 DOSES 06/21/17 [History] Mirtazapine [Remeron] 15 mg PO HS PRN 06/21/17 [History] Omeprazole Magnesium [Prilosec OTC] 20 mg PO DAILY 06/21/17 [History] Terbinafine [LamISIL] 250 mg PO DAILY 06/21/17 [History] busPIRone HCl [Buspar] 5 mg PO TID@0600,1500,2200 06/21/17 [History] Albuterol Nebulized (Conc) [Ventolin Nebulized (Conc)] 2.5 mg INHALATION Q3-4H PRN #1 neb 06/23/17 [Rx] Fluticasone/Salmeterol [Advair 250-50 Diskus] 1 each IH BID #1 blst.w.dev [Rx] Levofloxacin [Levaquin] 500 mg PO Q24H #5 tab 06/23/17 [Rx] predniSONE 40 mg PO DAILY #5 tab 06/23/17 [Rx] Follow up Appointment(s)/Referral(s): Nonstaff,Physician [Primary Care Provider] - 1-2 days Activity/Diet/Wound Care/Special Instructions: please call [facility] at time of d/c to arrange transportation. call [phone] ex [phone] Discharge Disposition: TRANSFER TO PSYCH HOSP/UNIT
[2017-06-23] MEDS ORDERED: INFLUENZA VACCINE (6 MOS+) 60 MCG/0.5 ML SYRINGE IM ONE (11:06)
[2017-06-23 11:56] LABS: Glucose,Whole Blood 267 mg/dL (75-99)
[2017-06-23] MEDS: SODIUM CHLORIDE 0.45% 1,000 ML IV SCH (12:25)
[2017-06-23] MEDS: LEVOFLOXACIN 500 MG TAB PO SCH (12:26)
[2017-06-24 16:18] LABS: S.pneumoniae Serotype 1 (1) 1.5 mcg/mL (>=2.3); S.pneumoniae Serotype 10A (34) 0.3 mcg/mL (>=2.9); S.pneumoniae Serotype 12F (12) 1.1 mcg/mL (>=0.6); S.pneumoniae Serotype 14 (14) 3.3 mcg/mL (>=7.0); S.pneumoniae Serotype 15B (54) 6.6 mcg/mL (>=3.3); S.pneumoniae Serotype 18C (56) 0.4 mcg/mL (>=3.3); S.pneumoniae Serotype 19F (19) 4.5 mcg/mL (>=15.0); S.pneumoniae Serotype 2 (2) 0.1 mcg/mL (>=1.0); S.pneumoniae Serotype 20 (20) 1.3 mcg/mL (>=1.3); S.pneumoniae Serotype 22F (22) 4.3 mcg/mL (>=7.2); S.pneumoniae Serotype 23F (23) 5.4 mcg/mL (>=8.0); S.pneumoniae Serotype 3 (3) 0.2 mcg/mL (>=1.8); S.pneumoniae Serotype 4 (4) 0.5 mcg/mL (>=0.6); S.pneumoniae Serotype 5 (5) <0.3 mcg/mL (>=10.7); S.pneumoniae Serotype 6B (26) <0.3 mcg/mL (>=4.7); S.pneumoniae Serotype 8 (8) 0.2 mcg/mL (>=2.9); S.pneumoniae Serotype 9N (9) 0.2 mcg/mL (>=9.2); S.pneumoniae Serotype 9V (68) 2.9 mcg/mL (>=2.6)
== END 2017-06-23 13:46 | DRG 872 ==
LOC: EC 13:47 → 5MS5E 16:58
PROVIDERS: ADMIT Family Medicine; ATTEND Family Medicine
DX: A41.89 Other specified sepsis (principal); E87.2 Acidosis; J44.0 Chronic obstructive pulmonary disease with (acute) lower respiratory infection; J44.1 Chronic obstructive pulmonary disease with (acute) exacerbation; J20.6 Acute bronchitis due to rhinovirus; E86.0 Dehydration; F32.9 Major depressive disorder, single episode, unspecified; F17.200 Nicotine dependence, unspecified, uncomplicated; F41.9 Anxiety disorder, unspecified; Z79.52 Long term (current) use of systemic steroids; Z79.899 Other long term (current) drug therapy
CPT/HCPCS: 36415; 36600; 71020; 80053; 81001; 81025; 82550; 82553; 82805; 83735; 83880; 84484; 85025; 85379; 85610; 85730; 86003; 86317; 87040; 87252; 87449; 87496; 87498; 87502; 87529; 87798; 93005; 94640; 96361; 96374; 99283; 99285